=== PATIENT | male | born 1980 | race Caucasian/White ===

== ENCOUNTER 2017-05-02 19:48 | Emergency (ER) | payer SELFPAY ==
[~2017-05-02] VITALS: Ht 188 cm; Wt 117.2 kg
[2017-05-02 19:51] VITALS: BP 164/110; PULSE 72; RESP 18; TEMP 97; O2SAT 97
[2017-05-02] MEDS ORDERED: PENICILLIN G BENZATHINE 1,200,000 UNITS/2 ML SYRINGE IM ONE (21:15)
--- NOTE | 2017-05-02 21:16 | PD ---
HPI . Sore throat/fever Chief Complaint: ENT Complaint Time Seen by Provider: 20:09 Travel History International Travel<30 days: No Contact w/Intl Traveler<30days: No Traveled to known affect area: No History of Present Illness HPI 36-year-old male patient presents emergency department for evaluation of sore throat and fevers since Sunday. Patient took ibuprofen prior to arrival. Patient denies any ear pain. Patient denies any major medical history. Patient doesn't take any daily medication. Patient presents with his who states that there are 3 kids have been sick with the same symptoms. They suspected have strep. [facility] Past Medical History Medical History: Denies Significant Hx Diminished Hearing: No Immunizations Current: Yes Tetanus Vaccination: > 5 Years Influenza Vaccination: No Past Surgical History Other Surgery: Yes (lymphnode removal back) Social History Alcohol Use: No Tobacco Use: Yes (1 pk week) Substance Use: No Allergies-Medications (Allergen,Severity, Reaction): Coded Allergies: No Known Allergies (Unverified Adverse Reaction, Unknown, 05/02/17) Reported Meds & Prescriptions Reported Meds & Active Scripts Active No Active Prescriptions or Reported Medications Review of Systems Except as stated in HPI: all other systems reviewed are Neg General / Constitutional: Positive: Fever HENT: Positive: Sore Throat Physical Exam Narrative GENERAL: Well-nourished, well-developed 36-year-old male patient in no acute distress. SKIN: Focused skin assessment warm/dry. HEAD: Normocephalic. Atraumatic. EYES: No scleral icterus. No injection or drainage. ENT: Mucosa pink and moist. No erythema or exudates. No uvular edema. No uvular , palatal, or tonsillar deviation. Airway patent. Nasal turbinates appear normal without nasal blood, purulent drainage or septal hematoma. THROAT: Moderate pharyngeal injection with exudates and tonsillar hypertrophy. Airway is patent. NECK: Supple, trachea midline. No JVD or lymphadenopathy. CARDIOVASCULAR: Regular rate and rhythm without murmurs, gallops, or rubs. RESPIRATORY: Breath sounds equal bilaterally. No accessory muscle use. GASTROINTESTINAL: Abdomen soft, non-tender, nondistended. MUSCULOSKELETAL: No cyanosis, or edema. Data Data Last Documented VS Vital Signs Date Time Temp Pulse Resp B/P (MAP) Pulse Ox O2 Delivery O2 Flow Rate FiO2 05/02/17 19:51 97.0 72 18 164/110 (128) 97 Orders Orders Group A Rapid Strep Screen (05/02/17 20:17) Influenzae A/B Antigen (05/02/17 20:17) Penicillin G Benzathine Inj (Bicillin L- (05/02/17 21:15) MDM Medical Decision Making Medical Screen Exam Complete: Yes Emergency Medical Condition: Yes Differential Diagnosis Differential diagnoses include but are not limited to URI, sinusitis, pharyngitis Narrative Course 36-year-old male patient presents for evaluation of sore throat and fever 3 days. Influenza and rapid strep ordered and pending. Rapid strep is positive. Influenza is negative. Patient treated with an IM injection of benzathine and discharged home with instructions for supportive care and follow-up with his primary care return to the emergency Department with any worsening condition. Diagnosis Primary Impression: Strep pharyngitis Referrals: Primary Care Physician Patient Instructions: General Instructions, Strep Throat (DC) Additional Instructions: Please return to emergency department if your symptoms return or worsen. Follow up with your primary care provider. Supportive care, rest, stay hydrated, get enough rest, diet as tolerated. Scripts No Active Prescriptions or Reported Meds Disposition: 01 DISCHARGE HOME Condition: Stable Yary Morgan Leandra MEDINA May 02, 2017 21:16
== END 2017-05-02 21:51 | disposition home or self-care (01) ==
LOC: PHEFT 19:48
DX: J02.0 Streptococcal pharyngitis (principal); B95.0 Streptococcus, group A, as the cause of diseases classified elsewhere; F17.200 Nicotine dependence, unspecified, uncomplicated
CPT/HCPCS: 87804; 87880; 96372; 99284; J0561